=== PATIENT | female | born 1995 | race Two or more races ===

== ENCOUNTER 2025-02-01 18:43 | Emergency (ER) | payer MEDICAID, SELFPAY ==
[2025-02-01 19:15] VITALS: BP 155/83; PULSE 93; RESP 20; TEMP 36.9; O2SAT 98; BMI 46.0
--- NOTE | 2025-02-01 20:11 | PD.EDADULT ---
ED General RME/HPI General Chief complaint: Recheck/Abnormal Lab/Rx Stated complaint: Swollen feet, uncontrolled DM Time Seen by Provider: 02/01/25 19:48 Arrival date/time: 02/01/25 18:43 RME / HPI RME / HPI narrative: 29-year-old female with past medical history of gestational diabetes comes into the ED with chief complaints of uncontrolled diabetes as well as lower extremity swelling. Patient states that she knows she has diabetes, but has not been able to control it appropriately as she has not been following a diabetic diet. She mentions that she uses long-acting insulin 50 units at night and short acting insulin 15 units with meals 3 times daily. Patient states that her sugars have been the highest in the 417 and the lowest 125 fasting. She mentions that her normal range for her sugars throughout the day is around 200-250. Patient does state that she has not had a period since September and that she recently discontinued her OCPs on December. She is sexually active and does not use barrier contraceptives. Otherwise denies any chest pain, shortness of breath, diarrhea, burning sensation urination, dizziness, or fevers. Otherwise has no other complaints. Denies any smoking, drugs, alcohol Related Data Allergies Allergy/AdvReac Type Severity Reaction Status Date / Time No Known Allergies Allergy Verified 02/01/25 18:48 Review of Systems Review of Systems Systems Reviewed: All systems reviewed, normal except as documented Past Medical History Past Medical History NEUROLOGIC: Negative Neurological Disorders or Seizures CARDIAC: Negative Cardiac Disorders or Congestive Heart Failure RESPIRATORY: Negative Chronic Obstructive Pulmonary Disease (COPD) GASTROINTESTINAL: Positive Gastrointestinal Disorders and Obesity GENITOURINARY: Negative Genitourinary Disorders or Renal Disease REPRODUCTIVE: Negative Pelvic Inflammatory Disease MUSCULOSKELETAL: Negative Musculoskeletal Disorders ENDOCRINE: Positive Endocrine Disorders; Negative Diabetes Mellitus Type 1 or Diabetes Mellitus Type 2 HEMATOLOGIC: Negative Blood Disorders OTHER HISTORY: Positive Hospitalization (LABOR ONLY); Negative Autoimmune Disease, Falls, Blood Transfusions, Blood Transfusion Reaction, Anesthesia Reactions, MRSA, Clostridium Difficile or Cancer Family History FAMILY HISTORY: Negative Family Psychiatric Problems, Family Respiratory Disorders, Family Cardiac Disorders, Family Gastrointestinal Problems, Family Cancer, Family Surgery or Family Anesthesia Reaction Surgical History SURGICAL: Positive Section (X 1); Negative Cardiac Surgery, Endocrine Surgery, Ear Surgery, Abdominal Surgery, Nephrectomy, Joint Replacement or Neurologic Surgery Social History SMOKING STATUS: Never smoker Travel History EBOLA RISK: No ED Exam Narrative Physical exam: Gen: A&O X 3, NAD HEENT: NCAT, EOMI, Pupils reactive JAMARCUS, not icteric. External ears normal. No rhinorrhea. Moist mucous membranes. Neck: Supple, full range of motion, no observable masses, No meningeal sign. Lungs: No Respiratory distress, clear bilateral. CV: RRR, no murmurs. Abdomen: Soft, but distended, nontender, No rebound tenderness. MSK: No joint swelling, no redness, peripheral pulses presents, no lower extremity edema. Skin: No rashes, petechiae, lesions. Neuro: No focal neurological deficits appreciated, sensory and motor intact. Psych: Cooperative, but sentimental Course Quality Measures none Orders Category Date Time Status Blood glucose [Bedside Blood Glucose] NOW Care 02/01/25 19:53 Active Beta Hydroxybutyrate Stat Lab 02/01/25 20:25 Completed CBC Stat Lab 02/01/25 20:25 Completed CMP [Comprehensive Metabolic Panel] Stat Lab 02/01/25 20:25 Completed HCG Qualitative,Urine Stat Lab 02/01/25 20:16 Completed Lipase Stat Lab 02/01/25 20:25 Completed UA [Urinalysis] Stat Lab 02/01/25 20:16 Completed Vital Signs Vital signs: Vital Signs Temperature 98.4 F 02/01/25 19:15 Pulse Rate 93 02/01/25 19:15 Respiratory Rate 20 02/01/25 19:15 Blood Pressure 155/83 H 02/01/25 19:15 Pulse Oximetry (%) 98 02/01/25 19:15 Oxygen Delivery Method Room Air 02/01/25 19:15 Discharge Plan Plan Patient Disposition: HOME (Self Care) Prescriptions/Referrals Referrals: Juan Kraft MD [Primary Care Provider] - In 1 week Problem List Clinical Impression: Hyperglycemia Patient/Caregiver Discharge Instructions Other Activity Instructions:: Follow-up primary care physician within 5 days Follow-up with primary care physician concerning Anemia. Recommend tight glucose control and maintaining diabetic diet. Recommend follow-up outpatient with [employer]. Recommend to continue with current insulin regimen at home. Please come back to the ED if symptoms persist or worsen. Education Materials: ED Diabetes with High Blood Sugar Print Language: Liberian Stand Alone Forms: [employer] Info., Patient Portal Info Letter MDM Narrative MDM hospital course: Patient was seen and evaluated by myself upon arrival to the room. Diagnostic labs were ordered. 2129: Patient's labs were reviewed, hemoglobin was low at 10.3, patient does not have any active signs of bleeding at this time. Otherwise labs were unremarkable. Patient's blood sugar was 219 and beta-hydroxybutyrate was negative. Patient's UA did not show ketones and did not show any bacteria at this time. Patient states CT was negative. At this time patient is stable enough to be discharged back home. With close follow-up with primary care physician for proper diabetes management. Patient agrees with plan. Case disclosed with Attending Dr. Bhaskar Ladd PGY2 Disclaimer: Even though this this note was dictated by speech recognition and even though it was carefully revised there may still be minor errors in entry level assistant manager due to voice recognition software.
[2025-02-01 20:41] LABS: Basophils # (Auto) 0.1 Thou/mm3 (0.0-0.2); Basophils % (Auto) 1 % (0-2.5); Eosinophils # (Auto) 0.5 Thou/mm3 (0.0-0.5); Eosinophils % (Auto) 5 % (0-10); Hematocrit 29.2 % (36.0-46.0); Hemoglobin 10.3 g/dL (12.0-16.0); Immature Granulocytes Auto 0.40 Thou/mm3 (0.00-0.00); Lymphocytes # (Auto) 3.0 Thou/mm3 (1.0-4.8); Lymphocytes % (Auto) 32 % (10-50); Mean Corpuscular HGB Conc 35.3 g/dl (31.0-37.0); Mean Corpuscular Hemoglobin 29.9 pg (25.0-35.0); Mean Corpuscular Volume 85 fL (80-100); Monocytes # (Auto) 0.6 Thou/mm3 (0.0-0.8); Monocytes % (Auto) 6 % (0-12); Neutrophils # (Auto) 4.9 Thou/mm3 (1.8-7.7); Neutrophils % (Auto) 52 % (37-80); Nucleated Red Blood Cell # 0.00 Thou/mm3 (0.00-0.00); Nucleated Red Blood Cell % 0 /100 WBC (0); Platelet Count 330 Thou/mm3 (140-440); RDW Standard Deviation 37.0 fL (36.4-46.3); Red Blood Count 3.45 Miln/mm3 (4.00-5.20); White Blood Count 9.4 Thou/mm3 (3.6-11.0)
[2025-02-01 20:42] LABS: Beta Hydroxybutyrate 0.1 mmol/L (<0.6)
[2025-02-01 20:42] LABS: Collection Type, Urine Voided
[2025-02-01 20:50] LABS: Bilirubin,Urine Negative (Negative); Blood,Urine Negative (Negative); Clarity,Urine Clear (Clear/Hazy); Color,Urine Colorless (Lt Yel-Yel); Glucose, Urine 3+ (Negative); Ketones,Urine Negative (Negative); Leukocyte Esterase,Urine Negative (Negative); Nitrite,Urine Negative (Negative); PH,Urine 6.0 (5.0-7.0); Protein,Urine 1+ (Neg - Trace); RBC,Urine < 1 /hpf (0-3); Specific Gravity,Urine 1.010 (1.001-1.035); Squamous Epithelial Cell,Urine 1 /hpf (0-5); Urobilinogen,Urine Negative mg/dL (0.0-1.0); WBC,Urine 1 /hpf (0-5)
[2025-02-01 20:58] LABS: Alanine Aminotransferase 85 U/L (10-49); Albumin, Serum 3.6 gm/dL (3.5-5.0); Albumin/Globulin Ratio 1.3 (1.2-2.2); Alkaline Phosphatase 88 U/L (46-116); Anion Gap 10 (7-16); Aspartate Amino Transferase 52 U/L (0-34); BUN/Creatinine Ratio 20 Ratio (12-20); Bilirubin,Total 0.4 mg/dL (0.3-1.2); Blood Urea Nitrogen 14 mg/dL (9-23); Calcium 9.1 mg/dL (8.3-10.6); Calcium (Corrected) 9.4 mg/dL (8.5-10.1); Carbon Dioxide 24.4 mMol/L (20.0-31.0); Chloride 104 mMol/L (98-107); Creatinine (Component) 0.7 mg/dL (0.6-1.3); Estimated Creatinine Clearance 144.5 mL/min (>60); Globulin 2.8 gm/dL (2.3-3.5); Glucose 219 mg/dL (74-106); Lipase 40 U/L (12-53); Osmolality,Calculated 283 (275-295); Potassium 3.8 mMol/L (3.4-5.1); Sodium 138 mMol/L (136-145); Total Protein 6.4 gm/dL (5.7-8.2); eGFR > 60 See Note
[2025-02-01 21:10] LABS: HCG Qualitative,Urine Negative
[2025-02-01 21:48] VITALS: BP 139/85; PULSE 82; RESP 18; TEMP 36.9; O2SAT 99
== END 2025-02-01 22:05 | disposition home or self-care (01) ==
PROVIDERS: Emergency Provider Emergency Medicine; PCP Family Medicine
DX: E11.65 Type 2 diabetes mellitus with hyperglycemia (principal); Z91.119 Patient's noncompliance with dietary regimen due to unspecified reason; Z79.4 Long term (current) use of insulin
CPT/HCPCS: 36415; 80053; 81001; 81025; 82010; 83690; 85025; 99283